=== PATIENT | female | born 1940 ===

== ENCOUNTER 2019-03-13 10:03 | Outpatient (CLI) | payer OTHER ==
[~2019-03-13 10:03] MED LIST: FORTAMET500 MG PO; FOSAMAX70 MG PO; LEVOXYL75 MCG PO; PLAVIX75 MG PO
== END 2019-03-13 10:08 | disposition home or self-care (01) ==
LOC: NUCLEAR 10:03
DX: I11.9 Hypertensive heart disease without heart failure (principal); R00.2 Palpitations